=== PATIENT | female | born 1975 | race Caucasian/White ===

== ENCOUNTER 2020-11-26 13:08 | Outpatient (CLI) | payer BC, SELFPAY | END 2020-11-26 13:09 | disposition home or self-care (01) | LOC: ANHSURGERY 13:15 | PROVIDERS: PCP Family Medicine; Visit Provider Obstetrics & Gynecology | DX: R39.15 Urgency of urination (principal); Z01.812 Encounter for preprocedural laboratory examination | CPT/HCPCS: 36415; 86850; 86900; 86901 ==

== ENCOUNTER 2020-11-30 00:31 | Day surgery (SDC) | payer BC, SELFPAY ==
[2020-11-21 11:08] VITALS: BMI 29.2
--- NOTE | 2020-11-27 12:30 | PM.IMHP ---
H&P: HPI History of Present Illness Date/Time: 11/27/20 12:30 41 for rule 1 para 1 status post hysterectomy admitted for tension-free vaginal tape and cystoscopy. Patient complains of stress urinary incontinence. She loses urine with coughing laughing sneezing exercising etc. She finds this source for reversing and like to have this fixed. Risks and benefits of this procedure reviewed including not exclusive of , aspiration pneumonia, bleeding, transfusion, perforation under bowel, bladder, ureters, or other internal organs with need for open laparotomy. The risk of mesh exposure and injury to the bladder wall were reviewed in full. She had all questions answered in asked to proceed Chief Complaint: stress urinary incontinence Review of Systems Review of Systems: All systems reviewed & are unremarkable except as noted in HPI and below PMFSH Past Medical History Medical History Seizure disorder Uterine fibroid Surgical History Surgical History Hx of hysterectomy Family History Family History Father Hypertension Sibling Hypertension Mother Patient's mother is Family history of lung cancer Family history of malignant neoplasm Other Diabetes mellitus Social History Social History Social History: Smoking status: Never smoker Second hand tobacco smoke exposure: No Alcohol intake: current Drinks per week: 8 Substance use: never Substance use type: does not use Additional living arrangements comments: SPOUSE Gender identity (if verbalized by the patient): Female Spiritual care concerns: No Meds Home Medications and Allergies Home Medications Medication Instructions Recorded Confirmed Type Lacto.acidophilus-Bif.animalis 2 cap PO DAILY 11/21/20 11/21/20 History [Daily Probiotic] bacillus coagulans-inulin 2 cap PO DAILY 11/21/20 11/21/20 History [Probiotic with Prebiotic] multivitamin [Daily Multiple] 1 tablet PO DAILY 11/21/20 11/21/20 History Allergies Allergy/AdvReac Type Severity Reaction Status Date / Time No Known Allergies Allergy Unknown Verified 11/21/20 11:04 Exam Const: General: no acute distress Eyes: General: appearance normal, both eyes and all related structures Neck: Neck: supple and no JVD Thyroid: thyroid normal Resp: Effort & Inspection: normal respiratory effort Auscultation: clear to auscultation bilaterally Cardio: Rate: regular rate Rhythm: regular rhythm GI: Inspection: non-distended GI Palp: Yes Soft to palpation, No Tenderness to palpation present (GI) and No Guarding due to palpation present (GI) Auscultation: normal bowel sounds : External Female Exam: normal external appearance Speculum Exam - Vagina: normal appearance of the vagina Speculum Exam - Cervix: Cervix absent Bimanual exam- vagina & uterus: uterus absent Bimanual Exam- Adnexa, other: normal adnexae OB/external & speculum: other ( hyper reactive urethra with Valsalva) Skin: General skin exam: no rashes or lesions noted Extrem: General: normal to inspection and no edema Psych: Mental Status: mental status grossly normal Affect: normal affect Assessment and Plan Additional Plan impression: Stress urinary incontinence Plan: Cystoscopy and tension-free vaginal tape
--- NOTE | 2020-11-30 05:50 | WPDHPUPDATE1 ---
History and Physical Update Update Date/Time: 11/30/20 05:50 History and Physical has been reviewed, including an updated exam of the patient. There are NO changes in the patient's condition. Risks, benefits, and alternatives have been discussed and questions answered. Patient agrees to proceed with procedure.
--- NOTE | 2020-11-30 10:02 | WPDANESEPPF ---
Anes - Initial Pre Proc Eval Procedure: Operation Date: 11/30/20 11:30 Proposed Procedures p Tension Free Vaginal Taping - Calin Bobby MD Date/Time: 11/30/20 10:02 Surgeon: Calin Bobby MD Pre Op Diagnosis: urinary urgency Patient Data Age: 45 Gender: F Height: 1.6 m Weight: 75 kg Allergies Allergy/AdvReac Type Severity Reaction Status Date / Time No Known Allergies Allergy Unknown Verified 11/21/20 11:04 Home Medications Medication Instructions Recorded Confirmed Type Lacto.acidophilus-Bif.animalis 2 cap PO DAILY 11/21/20 11/21/20 History [Daily Probiotic] bacillus coagulans-inulin 2 cap PO DAILY 11/21/20 11/21/20 History [Probiotic with Prebiotic] multivitamin [Daily Multiple] 1 tablet PO DAILY 11/21/20 11/21/20 History hydrocodone-acetaminophen 1 tablet PO Q4H PRN #30 tablet 11/30/20 Rx Patient hx anesthesia problems: none Family hx anesthesia problems: none PMFSH Past Medical History Medical History AVM (arteriovenous malformation) brain Seizure disorder Uterine fibroid Surgical History Surgical History H/O hernia repair Hx of hysterectomy Family History Family History Father Hypertension Sibling Hypertension Mother Patient's mother is Family history of lung cancer Family history of malignant neoplasm Other Diabetes mellitus Social History Social History Social History: Smoking status: Never smoker Second hand tobacco smoke exposure: No Alcohol intake: current Drinks per week: 8 Substance use: never Substance use type: does not use Living arrangements: with family Additional living arrangements comments: SPOUSE Gender identity (if verbalized by the patient): Female Spiritual care concerns: No Anes - Eval Final PreProcedure Day of Procedure 11/30/20 10:02 Patient weight: overweight Heart: regular rate and rhythm Lungs: clear to auscultation Airway: Mallampati scale class II Neurological: alert and oriented Last oral intake: >/= 8 hours ASA classification: II Emergent: no Anesthetic plan: proceed Anesthesia type and monitoring: general LMA and standard monitoring Informed Consent: The patient's anesthetic plan and its attendant risks and benefits were discussed with the patient/family/POA. Questions were solicited and answers provided to the satisfaction of the patient/family/POA.
[2020-11-30] MEDS: LACTATED RINGERS 1,000 ML 30 ML IV CONT ×2 (10:07→11:18)
[2020-11-30 10:09] VITALS: BP 132/85; PULSE 68; RESP 14; TEMP 37.6; O2SAT 97; BMI 29.8
[2020-11-30] MEDS: ceFAZolin 2 GM/D5W 50 ML 2 GM/50 ML BAG IVPB (10:38)
--- NOTE | 2020-11-30 11:14 | P.OP_ITS ---
Procedure Note - Detailed Date of Procedure 11/30/20 Pre-op Diagnosis urinary incontinence Post-op Diagnosis same Procedure Performed Tension-free vaginal tape /cystoscopy Surgeon Calin Bobby MD Anesthesia general Indications this is a 45-year-old female status post hysterectomy with stress urinary incon tinence Findings absent uterus and cervix /hyperactive ureter Description of Procedure patient was prepped draped in normal sterile fashion placed in the dorsal lithotomy position. Under excellent general endotracheal anesthesia weighted speculum placed in posterior fornix of vagina a an 18 Turkish catheter was placed in the bladder drained of clear urine. An infra urethral incision made in the retropubic bladder spaces entered by blunt dissection with a Duyen clamp. The urethral guide was placed in the urethra and retracted laterally. The right lateral bladder space was entered at a 45 degree angle of 30? through the fascia and skin. The urethra was retracted the opposite direction and the left retropubic bladder space entered a 45 degree angle and upto30? through the fascia and skin. The catheter was removed and the 70degree cystoscope was inserted. No injury seen the tape was brought up to the tightness of an open BN clamped and the plastic removed. The mesh was trimmed at the suprapubic area. The mid urethral once incision was closed with 4 Monocryl. Blood loss was sandee mated 5cc. All sponge, needle, instrument counts were correct. There were no immediate complications Implants tension-free tape Estimated Blood Loss 5 Drains No Packing No Pathology none sent Complications No immediate complications Condition stable Disposition same day
[2020-11-30 11:18] VITALS: BP 126/79; PULSE 79; RESP 13; TEMP 36.3; O2SAT 100
[2020-11-30 11:35] VITALS: BP 132/89; PULSE 60; RESP 12; O2SAT 100
[2020-11-30 11:50] VITALS: BP 136/78; PULSE 62; RESP 13; O2SAT 98
[2020-11-30] MEDS: fentaNYL CITRATE INJ (*CRX) 100 MCG/2 ML VIAL 25 MCG IV PUSH (11:55)
[2020-11-30 12:13] VITALS: BP 130/77; PULSE 62; RESP 16
== END 2020-11-30 12:54 | disposition home or self-care (01) ==
PROVIDERS: PCP Family Medicine; Visit Provider Obstetrics & Gynecology
PROC: 0TSD0ZZ Reposition Urethra, Open Approach (ICD-10-PCS; CPT 57288; principal; 2020-11-30 11:30)
DX: N39.3 Stress incontinence (female) (male) (principal); Z90.710 Acquired absence of both cervix and uterus; Q28.2 Arteriovenous malformation of cerebral vessels
CPT/HCPCS: 57288; 36415; 86850; 86900; 86901; A9270; C1771; J0690; J1100; J2250; J2405; J2704; J3010; J7030; J7120

== ENCOUNTER → 2020-12-20 11:47 | Outpatient (CLI) | payer BC, SELFPAY ==
--- NOTE | ~2020-12-20 | MM_ITS ---
EXAMINATION: MM screening [facility] BI w christina HISTORY: Screening TECHNIQUE: Craniocaudal and mediolateral oblique 3-D tomosynthesis images were obtained and synthetic 2-D images were generated. CAD analysis was submitted and interpreted. COMPARISON: Comparison to multiple prior studies sequentially, with oldest reviewed study dated 05/01. BREAST PARENCHYMAL COMPOSITION: The breasts are extremely dense, which lowers the sensitivity of mamm ography FINDINGS: There is no evidence of suspicious mass, calcification, or architectural distortion to sugg est malignancy in either breast. There has been no suspicious interval change. IMPRESSION: 1. No mammographic evidence of malignancy. 2. Recommend routine screening mammography in one year. BI-RADS Category 1: Negative Reviewed, dictated and finalized at location A.
== END ==
PROVIDERS: Visit Provider Obstetrics & Gynecology
DX: Z12.31 Encounter for screening mammogram for malignant neoplasm of breast (principal)
CPT/HCPCS: 77063; 77067

== ENCOUNTER → 2022-02-21 15:58 | Outpatient (CLI) | payer BC, SELFPAY ==
--- NOTE | ~2022-02-21 | MM_ITS ---
EXAMINATION: MM screening [facility] BI w christina HISTORY: Screening mammogram TECHNIQUE: Craniocaudal and mediolateral oblique 3-D tomosynthesis images were obtained and synthetic 2-D images were generated. Bilateral rotated lateral CC views. CAD analysis was submitted and interp reted. COMPARISON: 12/20/2020, 06/25/2018, 05/11/2017 bilateral screening mammogram examinations BREAST PARENCHYMAL COMPOSITION: The breasts are extremely dense, which lowers the sensitivity of mamm ography. FINDINGS: New approximately 1.5 x 2 cm circumscribed opacity with halo sign is noted in the posterior inner left breast (craniocaudal Tomosynthesis image 59/92; diagnostic left mammogram and left breast ultrasound examination are recommended. Otherwise there is no evidence of suspicious mass, calcification, or architectural distortion to sug gest malignancy in either breast. There has been no other suspicious interval change. IMPRESSION: 1. New circumscribed 1.5 x 2 cm mass in the posterior inner left breast 2. Diagnostic left mammogram and left breast ultrasound examination are recommended. BI-RADS Category 0: Incomplete: Needs additional imaging evaluation. Reviewed, dictated and finalized at location A. IMPRESSION: 1. New circumscribed 1.5 x 2 cm mass in the posterior inner left breast 2. Diagnostic left mammogram and left breast ultrasound examination are recomme nded. BI-RADS Category 0: Incomplete: Needs additional imaging evaluation.
== END ==
PROVIDERS: PCP Family Medicine; Visit Provider Obstetrics & Gynecology
DX: Z12.31 Encounter for screening mammogram for malignant neoplasm of breast (principal); R92.8 Other abnormal and inconclusive findings on diagnostic imaging of breast
CPT/HCPCS: 77063; 77067

== ENCOUNTER → 2022-03-11 14:20 | Outpatient (CLI) | payer BC, SELFPAY ==
--- NOTE | ~2022-03-11 | MMUS_ITS ---
EXAMINATION: MM diagnostic [facility] LT w christina, US breast LT complete HISTORY: Left breast mass TECHNIQUE: Additional 3-D tomosynthesis images of the left breast were performed and synthetic 2-D im ages were generated. CAD analysis was submitted and interpreted. High resolution complete leftbreast ultrasound was performed. COMPARISON: Comparison to multiple prior studies sequentially, with oldest reviewed study dated 05/01. BREAST PARENCHYMAL COMPOSITION: The breasts are extremely dense, which lowers the sensitivity of mamm ography FINDINGS: MAMMOGRAPHIC FINDINGS: The breasts are extremely dense, which lowers the sensitivity of mammography. There are no suspicious masses, calcifications or architectural distortion in the left breast to suggest malignancy. Focal a symmetries in the upper inner quadrant of the left breast are persistent. ULTRASOUND: Complete left breast US of all 4 quadrants of the breasts and retroareolar region was reviewed. There are multiple left breast cysts including a 2.1 cm cyst at 10:00, 6 cm from the nipple. There is a mi nimally complicated cyst at 11:00, 6 cm from the nipple measuring 7 mm. No suspicious masses to sugge st malignancy. IMPRESSION: 1. No evidence for malignancy in the left breast. 2. Routine yearly screening mammogram and regular clinical breast examination are recommended. BI-RADS Category 2: Benign finding(s). Reviewed, dictated and finalized at location A. IMPRESSION: 1. No evidence for malignancy in the left breast. 2. Routine yearly screening mammogram and regular clinical breast examination a re recommended. BI-RADS Category 2: Benign finding(s).
== END ==
PROVIDERS: PCP Family Medicine; Visit Provider Obstetrics & Gynecology
DX: R92.8 Other abnormal and inconclusive findings on diagnostic imaging of breast (principal)
CPT/HCPCS: 76641; 77061; 77065; G0279

== ENCOUNTER 2022-12-23 12:03 | Outpatient (NON) | payer BC, SELFPAY | END 2022-12-23 12:04 | disposition home or self-care (01) | PROVIDERS: PCP Family Medicine; Visit Provider Nurse Practitioner | DX: L82.1 Other seborrheic keratosis (principal) | CPT/HCPCS: 88305 ==

== ENCOUNTER → 2023-03-31 15:51 | Outpatient (CLI) | payer BC, SELFPAY ==
--- NOTE | ~2023-03-31 | MM_ITS ---
EXAMINATION: MM screening [facility] BI w christina HISTORY: Screening mammogram TECHNIQUE: Craniocaudal and mediolateral oblique 3-D tomosynthesis images were obtained and synthetic 2-D images were generated. CAD analysis was submitted and interpreted. COMPARISON: 03/11/2022, 02/21/2022, 12/20/2020, 06/25/2018 BREAST PARENCHYMAL COMPOSITION: The breasts are heterogeneously dense, which may obscure small masses . FINDINGS: No suspicious mass, calcification, or architectural distortion are identified in either carlos alberto ast to suggest malignancy. There has been no suspicious interval change. IMPRESSION: 1. No mammographic evidence of malignancy. 2. Recommend routine screening mammography in one year. BI-RADS Category 1: Negative Reviewed, dictated and finalized at location A.
== END ==
PROVIDERS: PCP Obstetrics & Gynecology; Visit Provider Obstetrics & Gynecology
DX: Z12.31 Encounter for screening mammogram for malignant neoplasm of breast (principal)
CPT/HCPCS: 77063; 77067

== ENCOUNTER 2025-04-07 15:52 | Outpatient (CLI) | payer BC, SELFPAY ==
--- NOTE | ~2025-04-07 | MM_ITS ---
EXAMINATION: MM screening [facility] BI w christina HISTORY: Screening TECHNIQUE: Craniocaudal and mediolateral oblique 3-D tomosynthesis images were obtained and synthetic 2-D images were generated. CAD analysis was submitted and interpreted. COMPARISON: Comparison to multiple prior studies sequentially, with oldest reviewed study dated 06/25/2018. BREAST PARENCHYMAL COMPOSITION: Dense: The breasts are extremely dense, which lowers the sensitivity of mammography. FINDINGS: There is no evidence of suspicious mass, calcification, or architectural distortion to suggest malignancy in either breast. There has been no suspicious interval change. IMPRESSION: 1. No mammographic evidence of malignancy. 2. Recommend routine screening mammography in one year. BI-RADS Category 1: Negative Reviewed, dictated and finalized at location O. PHONE APPOINTMENT CLERK
== END 2025-04-07 15:53 | disposition home or self-care (01) ==
LOC: MICIMG 15:53
PROVIDERS: PCP Obstetrics & Gynecology; Visit Provider Obstetrics & Gynecology
DX: Z12.31 Encounter for screening mammogram for malignant neoplasm of breast (principal)
CPT/HCPCS: 77063; 77067